=== PATIENT | female | born 1980 | race Asian ===

== ENCOUNTER 2017-07-25 06:05 | Inpatient (IN) | payer SELFPAY ==
[2017-07-21 10:35] LABS: BILIRUBIN,URINE NEGATIVE (NEGATIVE); BLOOD, URINE NEGATIVE (NEGATIVE); CLARITY/URINE CLEAR (CLEAR); COLOR,URINE YELLOW (YELLOW); GLUCOSE,URINE NEGATIVE (NEGATIVE); KETONES,URINE NEGATIVE (NEGATIVE); LEUKOCYTE ESTERASE ,URINE NEGATIVE (NEGATIVE); NITRITE, URINE NEGATIVE (NEGATIVE); PH,URINE 6.5 (5.0-8.0); PROTEIN URINE NEGATIVE (NEGATIVE); UROBILINOGEN,URINE 0.2 (0.2-1.0)
[2017-07-21 10:37] LABS: BASOPHILS # (AUTO) 0.1 K/uL (0.0-0.2); BASOPHILS % (AUTO) 1.6 % (0.0-2.0); EOSINOPHILS # (AUTO) 0.2 K/uL (0.0-0.4); EOSINOPHILS % (AUTO) 2.9 % (0.0-4.0); HEMATOCRIT 41.7 % (36-48); HEMOGLOBIN 14.3 g/dL (12.0-16.0); LYMPHOCYTES # (AUTO) 1.4 K/uL (1.0-5.5); LYMPHOCYTES % (AUTO) 21.1 % (20.5-51.5); MEAN CORPUSCULAR HEMOGLOBIN 33 pg (27-31); MEAN CORPUSCULAR HGB CONC 34 % (32-36); MEAN CORPUSCULAR VOLUME 96 fL (79.0-98.0); MONOCYTES # (AUTO) 0.3 K/uL (0.0-1.0); MONOCYTES % (AUTO) 4.9 % (1.7-9.3); NEUTROPHILS # (AUTO) 4.6 K/uL (1.8-7.7); NEUTROPHILS % (AUTO) 69.5 % (40.0-70.0); PLATELET COUNT (AUTO) 110 K/uL (130-430); RED BLOOD CELL COUNT(AUTO) 4.32 MIL/uL (4.2-6.2); RED CELL DISTRIBUTION WIDTH 12.9 % (9.0-15.0); WHITE BLOOD COUNT (AUTO) 6.6 K/uL (4.8-10.8)
[~2017-07-25] VITALS: Ht 170.2 cm; Wt 80.3 kg
[2017-07-25] MEDS ORDERED: LR 1,000 ML IV SCH ×3 (06:24→08:49)
[2017-07-25] MEDS ORDERED: CITRIC ACID/SODIUM CITRATE 30 ML UDC PO ONE (06:30)
[2017-07-25] MEDS ORDERED: CLINDAMYCIN 900 mg/50mL D5W 50 ML IV ONE (06:30)
[2017-07-25 06:52] VITALS: BP_SYST 120
[2017-07-25] MEDS ORDERED: NS IRRIG SOLN 1000 ML IR ONE (07:20)
[2017-07-25] MEDS ORDERED: ONDANSETRON HCL 4 MG/2 ML VIAL IVP ONE (07:20)
[2017-07-25] MEDS ORDERED: LR 1,000 ML IV.SOLN IV ONE (07:20)
[2017-07-25] MEDS ORDERED: MORPHINE SULFATE 10MG/10ML PF AMP EP ONE (07:20)
[2017-07-25] MEDS ORDERED: BUPIVACAINE /DEX PF 0.75% SPINAL 2 ML AMP INJ ONE (07:20)
[2017-07-25] MEDS ORDERED: OXYTOCIN 10 UNIT/ML VIAL IV ONE (07:20)
[2017-07-25] MEDS ORDERED: ePHEDrine sulfate 50 MG/ML VIAL IVP ONE (07:20)
[2017-07-25] MEDS ORDERED: NALOXONE HCL 1 MG in NACL 0.9% 1,000 ML IV PRN ×4 (08:32)
[2017-07-25 08:45] VITALS: BP_SYST 145
[2017-07-25] MEDS ORDERED: KETOROLAC TROMETHAMINE 60 MG/2 ML VIAL IM PRN (08:45)
[2017-07-25] MEDS ORDERED: DIPHENHYDRAMINE INJ 50 MG/ML VIAL IVP PRN (08:45)
[2017-07-25] MEDS ORDERED: MEPERIDINE HCL/PF 25 MG/ML DISP.SYRIN IVP PRN ×2 (08:45)
[2017-07-25] MEDS ORDERED: DIPHENHYDRAMINE HCL 50 MG CAPSULE PO PRN (08:45)
[2017-07-25] MEDS ORDERED: MORPHINE SULFATE 10 MG/ML VIAL IVP PRN (08:45)
[2017-07-25] MEDS ORDERED: MORPHINE 4 MG/ML INJ. SYRINGE IVP PRN ×2 (08:45)
[2017-07-25] MEDS ORDERED: NALOXONE HCL 0.4 MG/ML AMP (NARCAN) IVP PRN ×3 (08:45)
[2017-07-25] MEDS ORDERED: ONDANSETRON HCL 4 MG/2 ML VIAL IVP PRN (08:45)
[2017-07-25] MEDS ORDERED: OXYTOCIN/0.9 % SODIUM CHLORIDE 1,000 ML IV ONE ×2 (08:49→09:02)
[2017-07-25] MEDS ORDERED: METOCLOPRAMIDE HCL 10 MG/2 ML VIAL ONE (08:52)
[2017-07-25] MEDS ORDERED: ACETAMINOPHEN 325 MG TABLET PO PRN (09:00)
[2017-07-25] MEDS ORDERED: METOCLOPRAMIDE HCL 10 MG/2 ML VIAL IVP ONE (09:00)
[2017-07-25] MEDS ORDERED: SENNOSIDES/DOCUSATE SODIUM 1 TAB TABLET(SENOKOT-S) PO PRN (09:00)
[2017-07-25] MEDS ORDERED: HYDROcodone/ACETAMIN 5-325 MG TAB (NORCO/ VICODIN) PO PRN ×2 (09:00)
[2017-07-25] MEDS ORDERED: RHO(D) IMMUNE GLOBULIN/MALTOSE 1500 UNITS/1.3 ML (WINHRO) IM PRN (09:00)
[2017-07-25] MEDS ORDERED: LANOLIN 7 GM OINT. TP PRN (09:00)
[2017-07-25] MEDS ORDERED: BISACODYL 10 MG/SUPPOSITORY RC PRN (09:00)
[2017-07-25] MEDS ORDERED: DOCUSATE SODIUM 100 MG CAPSULE PO PRN (09:00)
[2017-07-25] MEDS ORDERED: SIMETHICONE 80 MG TAB.CHEW PO PRN (09:00)
[2017-07-25] MEDS ORDERED: ANUSOL 1 EA SUPP.RECT (PREPARATION H) RC PRN (09:00)
[2017-07-25] MEDS ORDERED: MEASLES,MUMPS&RUBELLA VACC/PF 12500 UNIT/0.5 ML VIAL SUBQ PRN (09:00)
[2017-07-25] MEDS ORDERED: METHYLERGONOVINE MALEATE 0.2 MG/ML AMP IM ONE (10:00)
[2017-07-25] MEDS ORDERED: hydrALAZINE HCL 20 MG/ML VIAL IVP ONE (12:15)
[2017-07-25] MEDS ORDERED: TEMAZEPAM 15 MG CAPSULE PO PRN (21:00)
[2017-07-26] MEDS: IBUPROFEN 600 MG TABLET PO SCH ×4 (00:45→17:33)
[2017-07-26 07:04] LABS: BASOPHILS % (AUTO) 0.4 % (0.0-2.0); EOSINOPHILS # (AUTO) 0.1 K/uL (0.0-0.4); EOSINOPHILS % (AUTO) 1.2 % (0.0-4.0); HEMATOCRIT 35.3 % (36-48); HEMOGLOBIN 12.1 g/dL (12.0-16.0); LYMPHOCYTES # (AUTO) 1.7 K/uL (1.0-5.5); MEAN CORPUSCULAR HEMOGLOBIN 34 pg (27-31); MEAN CORPUSCULAR HGB CONC 34 % (32-36); MEAN CORPUSCULAR VOLUME 98 fL (79.0-98.0); MONOCYTES # (AUTO) 0.4 K/uL (0.0-1.0); MONOCYTES % (AUTO) 3.6 % (1.7-9.3); NEUTROPHILS # (AUTO) 9.9 K/uL (1.8-7.7); NEUTROPHILS % (AUTO) 80.8 % (40.0-70.0); RED BLOOD CELL COUNT(AUTO) 3.62 MIL/uL (4.2-6.2); RED CELL DISTRIBUTION WIDTH 13.4 % (9.0-15.0); WHITE BLOOD COUNT (AUTO) 12.1 K/uL (4.8-10.8)
[2017-07-26 11:37] LABS: PLATELET COUNT (AUTO) 91 K/uL (130-430)
[2017-07-27] MEDS: IBUPROFEN 600 MG TABLET PO SCH ×4 (00:17→23:45)
[2017-07-27] MEDS ORDERED: MILK OF MAGNESIA 30 ML UDC PO PRN (03:30)
[2017-07-27 06:11] LABS: BASOPHILS % (AUTO) 0.1 % (0.0-2.0); EOSINOPHILS # (AUTO) 0.3 K/uL (0.0-0.4); EOSINOPHILS % (AUTO) 3.1 % (0.0-4.0); HEMATOCRIT 32.3 % (36-48); HEMOGLOBIN 11.3 g/dL (12.0-16.0); LYMPHOCYTES # (AUTO) 1.2 K/uL (1.0-5.5); LYMPHOCYTES % (AUTO) 13.2 % (20.5-51.5); MEAN CORPUSCULAR HEMOGLOBIN 34 pg (27-31); MEAN CORPUSCULAR HGB CONC 35 % (32-36); MEAN CORPUSCULAR VOLUME 96 fL (79.0-98.0); MONOCYTES # (AUTO) 0.4 K/uL (0.0-1.0); MONOCYTES % (AUTO) 4.7 % (1.7-9.3); NEUTROPHILS # (AUTO) 7.1 K/uL (1.8-7.7); NEUTROPHILS % (AUTO) 78.9 % (40.0-70.0); PLATELET COUNT (AUTO) 101 K/uL (130-430); RED BLOOD CELL COUNT(AUTO) 3.36 MIL/uL (4.2-6.2); RED CELL DISTRIBUTION WIDTH 13.4 % (9.0-15.0)
[2017-07-28] MEDS: IBUPROFEN 600 MG TABLET PO SCH (06:00)
== END 2017-07-28 09:15 | disposition home or self-care (01) | DRG 766 ==
LOC: SPU 06:05
PROVIDERS: ADMIT Obstetrics & Gynecology; ATTEND Obstetrics & Gynecology
PROC: 10D00Z1 Extraction of Products of Conception, Low, Open Approach (ICD-10-PCS; principal; 2017-07-25 07:30)
DX: O30.003 Twin pregnancy, unspecified number of placenta and unspecified number of amniotic sacs, third trimester (principal); Z3A.37 37 weeks gestation of pregnancy; Z37.2 Twins, both liveborn
CPT/HCPCS: 36415; 81003; 85025; 86592; 86886; 86900; 86901; 94760; J0360; J2274; J2405; J2590; J2765; J3490; J7120